=== PATIENT | female | born 1945 | race Caucasian/White ===

== ENCOUNTER 2018-05-28 18:51 | Emergency (ER) | payer MEDICARE, OTHER ==
--- NOTE | 2018-05-28 19:33 | XRAY Report ---
Reason: wrist inj Procedure Date: 05/28/2018 Accession Number: [id number] / [id number] Procedure: XR - Wrist 4 View RT CPT Code: FULL RESULT: EXAM: RIGHT WRIST RADIOGRAPHY EXAM DATE: 05/28/2018 07:28 PM. CLINICAL HISTORY: Wrist inj. COMPARISON: None available. TECHNIQUE: 4 views. FINDINGS: Osteopenia. There is an acute fracture of the distal right radial metaphysis, which is dorsally angulated by 22 degrees. The carpal bones are intact and normally aligned. Mild degenerative change of the first carpometacarpal joint. Soft tissue swelling about the wrist. IMPRESSION: Acute, dorsally angulated fracture of the distal right radial metaphysis. RADIA
[2018-05-28] MEDS ORDERED: BUPIVACAINE 0.5%-EPI 1:200000 PF 10 ML VIAL SUBQ STA (19:34)
[2018-05-28] MEDS ORDERED: HYDROcod/ACET 5/325 Prepack 4 PO STA (19:34)
--- NOTE | 2018-05-28 19:36 | ED Physician Documentation ---
PD HPI UPPER EXT INJURY - Stated complaint Stated Complaint: GLF WRIST INJURY - Chief complaint Chief Complaint: Ext Problem - History obtained from History obtained from: Patient - History of Present Illness Location: Right, Wrist Type of injury: Fall Timing - onset: Today (Tripped and fell, falling on outstretched right hand, isolated right wrist injury, no other inj) Review of Systems Constitutional: reports: Reviewed and negative Nose: reports: Reviewed and negative Throat: reports: Reviewed and negative PD PAST MEDICAL HISTORY - Present Medications Home Medications: Ambulatory Orders Medication Instructions Recorded Confirmed Hydrocodone/Acetaminophen 1 - 2 each PO Q6H PRN #14 tablet 05/28/18 [Hydrocodon-Acetaminophen 5-325] Levothyroxine Sodium [Synthroid] 0 mcg PO DAILY 05/28/18 05/28/18 - Allergies Allergies/Adverse Reactions: Allergies Allergy/AdvReac Type Severity Reaction Status Date / Time Penicillins Allergy Unknown Verified 05/28/18 18:59 PD ED PE NORMAL - Vitals Vital signs reviewed: Yes - General General: Alert and oriented X 3, No acute distress - Neck Neck: Supple, no meningeal sign, No bony TTP - Extremities Extremities: Other (Right wrist has a dorsal deformity consistent with Colles' fracture, normal neurovascular function in the hand.) - Neuro Neuro: Alert and oriented X 3, Normal speech - Psych Psych: Normal mood, Normal affect Results - Vitals Vitals: Vital Signs - 24 hr 05/28/18 18:56 Temperature 36.7 C Heart Rate 93 Respiratory 16 Rate Blood Pressure 168/84 H O2 Saturation 97 Oxygen O2 Source Room air - Rads (name of study) R wrist 4v Radiology: EMP read contemporaneously (Acute dorsally angulated fracture of the distal right radial metaphysis.) Procedures - Splint (location) R wrist Splint applied by: Physician Type of splint: Fiberglass, Long arm, Sugar tong Other: Patient tolerated well, No complications, Neurovascular intact, Sling provided - Reduction Body part reduced: Right, Wrist Fracture or dislocation: Fracture dislocation Anesthesia: Hematoma block (5ml 0.5ml marcaine with epi) Reduction aftercare: Alignment improved, Splint applied Departure - Departure Disposition: 01 Home, Self Care Clinical Impression: Colles' fracture Qualifiers: Encounter type: initial encounter Fracture type: closed Laterality: right Qualified Code(s): S52.531A - Colles' fracture of right radius, initial encounter for closed fracture Condition: Good Record reviewed to determine appropriate education?: Yes Instructions: ED Fx Forearm Radius Ulna Redu Requ Follow-Up: [facility] [Provider Group] Prescriptions: Hydrocodone/Acetaminophen [Hydrocodon-Acetaminophen 5-325] 1 - 2 each PO Q6H PRN #14 tablet PRN Reason: pain Comments: Keep the splint on and dry, do not remove it and do not get it wet. Follow-up with an orthopedic surgeon this coming week, call Wednesday for an appointment. Your blood pressure was elevated today on check into the emergency department. This does not mean that you have hypertension, it is a common phenomenon to come to the emergency department and have elevated blood pressure. I recommend that you see your primary care physician within the week to have it rechecked when you are feeling better. Do not drink or drive while taking narcotic pain medication. Note that many narcotic pain relievers also contain Tylenol/acetaminophen. Please ensure that your total dose of acetaminophen from all sources does not exceed 3 g (3000 mg) per day. You may get constipated while on this medication. Take a stool softener such as Colace twice a day while you are on it. Also add an glib-fmw-pnnugzu laxative such as senna or MiraLAX on any day that you do not have a bowel movement. If you received a narcotic pain medication or sedative while in the emergency department, do not drive for the next 24 hours.
[2018-05-28 20:32] VITALS: BP 132/72
== END 2018-05-28 20:33 | disposition home or self-care (01) ==
LOC: ED 18:51
DX: S52.531A Colles' fracture of right radius, initial encounter for closed fracture (principal); W01.0XXA Fall on same level from slipping, tripping and stumbling without subsequent striking against object, initial encounter; Y93.H2 Activity, gardening and landscaping; R03.0 Elevated blood-pressure reading, without diagnosis of hypertension
CPT/HCPCS: 25605; 99283

== ENCOUNTER 2018-06-01 09:38 | Day surgery (SDC) | payer MEDICARE, OTHER ==
--- NOTE | 2018-06-01 08:52 | ANESTHESIA ---
Pre-Anesthesia VS, & Labs - Diagnosis right wrist distal radius fracture - Procedure ORIF right distal radius Height 4 ft 10 in Body Mass Index 22.6 - NPO >8 hours (except meds with sip) - Is Patient ?: No Home Medications and Allergies Home Medications: Ambulatory Orders Alendronate [Fosamax] 70 mg PO ONCE 05/31/18 Levothyroxine Sodium [Synthroid] 0.05 mcg PO DAILY 05/28/18 Alendronate [Fosamax] 70 mg PO ONCE 05/31/18 Allergies/Adverse Reactions: Allergies Allergy/AdvReac Type Severity Reaction Status Date / Time Penicillins Allergy Unknown Verified 05/28/18 18:59 Anes History & Medical History - Anesthetic History Anesthesia Complications: reports: No previous complications - Medical History Cardiovascular: reports: None Pulmonary: reports: None Gastrointestinal: reports: None Urinary: reports: None Musculoskeletal: reports: Osteoporosis Endocrine/Autoimmune: reports: HyPOthyroidism Smoking Status: Never smoker - Surgical History Gynecologic: Tubal ligation Results - EKG Results EKG Comparison: Reviewed EKG (NSR) Exam General: Alert Dental: WNL, Partials Upper Mouth Openin Fingerbreadth Mallampati classification: II Respiratory: Lungs clear Cardiovascular: Regular rate, Normal S1, Normal S2 Mental/Cognitive Status: Alert/Oriented X3 Plan Anesthesia Type: General (GA backup), Supraclavicular Block Consent for Procedure(s) Verified and Reviewed: Yes Code Status: Attempt Resuscitation ASA classification: 2-Mild systemic disease Is this case an emergency?: No
[~2018-06-01 09:38] MED LIST: LACTATED RINGERS 1,000 ML IV ONE; ceFAZolin 2 GM/50 ML 2 GM/50 ML BAG IV ONE
[2018-06-01] MEDS ORDERED: BUPIVACAINE 0.25% PF 30 ML VIAL SUBQ ONE (09:39)
[2018-06-01] MEDS ORDERED: MIDAZOLAM 2 MG/2 ML VIAL ONE (10:19)
[2018-06-01] MEDS ORDERED: fentaNYL 100 MCG/2 ML VIAL ONE (10:19)
[2018-06-01] MEDS ORDERED: DEXAMETHASONE 4 MG/ML VIAL ONE (10:19)
[2018-06-01] MEDS ORDERED: ROPIVACAINE 0.5% PF 20 ML AMPULE ONE (10:19)
[2018-06-01 10:32] LABS: CALCIUM 8.5 mg/dL (8.5-10.3); CREATININE 0.7 mg/dL (0.4-1.0)
[2018-06-01] MEDS ORDERED: PROPOFOL 200 MG/20 ML VIAL IVP ONE (12:10)
[2018-06-01] MEDS ORDERED: LACTATED RINGERS 1,000 ML IV ONE (12:56)
[2018-06-01] MEDS ORDERED: oxyCODONE 5 MG TABLET PO PRN (14:33)
[2018-06-01] MEDS ORDERED: ONDANSETRON 4 MG/2 ML VIAL IVP PRN (14:33)
[2018-06-01 15:33] VITALS: BP 136/59
--- NOTE | 2018-06-02 16:01 | OPERATIVE REPORT ---
DATE OF SERVICE: 06/01/2018 Physician: Kodi Archuleta MD SURGEON: Kodi Archuleta MD. ANESTHESIOLOGIST: Jonatan Beard CRNA, as well as Yadira Jimenez CRNA PREOPERATIVE DIAGNOSIS: Right intraarticular distal radius fracture, displaced. POSTOPERATIVE DIAGNOSIS: Right intraarticular distal radius fracture, displaced. PROCEDURES: 1. Right distal radius open reduction and internal fixation. 2. Brachioradialis tenotomy. 3. Right wrist 4-view mini C-arm fluoroscopic interpretation. ANESTHESIA TYPE: Right shoulder supraclavicular regional anesthetic, as well as sedation. COMPRESSION DEVICE: Bilateral calf SCD boots. PREOPERATIVE ANTIBIOTICS: Weight-based IV Ancef. ESTIMATED BLOOD LOSS: Less than 10 mL. FLUIDS: 1300 mL of lactated Ringer's. TIN ASSORTER: None. ORTHOPEDIC IMPLANT: Biomet DVR narrow right small plate with associated locking and nonlocking screw s. HISTORY OF PRESENT ILLNESS: The patient is a 73-year-old female, who is quite active, found to have a right displaced intraarticular distal radius fracture. She was indicated for operative treatment. Please see preoperative clinic visit for further details on risks, benefits, alternatives discussion . This is again highlighted in the preoperative care unit with the patient and the patient's daughte r and . Her questions were answered. They verbalized a wish to proceed with operative treatm ent. Informed consent was given. PROCEDURE: On 06/01/2018, patient was identified in the preoperative care unit. She identifies her right wrist as the operative site; this is signed by the operating surgeon. Patient was brought to [facility] operating room, placed supine on the operating table. Head, neck, and extremities placed in anato mically comfortable and safe positions to avoid peripheral nerve stretch and compression. Of note, r egional anesthesia had been administered in the preoperative care unit. Patient is sedated. Patient 's right upper extremity has a well-padded tourniquet placed high on the right arm, taking care to av oid encumbrance of the axilla. Patient's right upper extremity is prescrubbed with chlorhexidine khadar ution and then prepped and draped in the usual sterile fashion. At this time, surgical pause identif ies right wrist as operative site. At this time, Esmarch bandage was used to exsanguinate the limb. Tourniquet is inflated, and then incision is made over the FCR and then angled towards the wrist cre ase, spreading dissection carried out to the FCR tendon sheath, which is incised gently and extended proximally and distally. FCR is brought aside, and the posterior sheath is incised and then spreadin g dissection carried down to the pronator quadratus. Medial and lateral retraction is used to protec t adjacent neurovascular structures. At this point, pronator quadratus is identified in its borders and then elevated in an L-shaped fashion for later repair. At this point, brachioradialis is identif ied. First dorsal extensor compartment is identified. Brachioradialis is elevated off the radial st yloid carefully. At this point, the fracture site is irrigated and hematoma is evacuated, as is natalee osteum. Reduction maneuver helps to maintain or restore length of the radius, as well as radial incl ination and closes down sagittal split, as well as provides appropriate volar inclination. At this p oint, a plate is selected and is ultimately used for additional reduction, such that the distal aspec t is fixed with multiple locking screws after confirmation of extraarticular trajectory using a K-wir e. Once the distal locking screws are placed, approximately 3 in number, then the oval hole is fille d in the shaft, thereby further reducing and optimizing the reduction. At this point, residual dista l and proximal holes are filled with locking screws. At this point, confirmation of appropriate frac ture reduction and extraarticular hardware is seen on fluoroscopic image. Hardware is also noted to be out of the DRUJ. At this point, the screws are noted to be appropriately tightened, and then the wound is copiously irrigated. Pronator quadratus is then closed over the plate, and then the skin is closed using 0 Vicryl, 2-0 Vicryl, and interrupted nylon suture. Skin is washed and dried. Xerofor m dressing is applied. Dry sterile dressing is applied. Soft roll and then a clamshell-type plaster splint is applied. Patient tolerated the procedure well. Instrument and sponge counts are correct. Patient is transfer red to recovery room in stable condition. Patient will follow standard postoperative right distal radius open reduction and internal fixation p rotocol. Patient will be nonweightbearing. She would stay in the splint. She would keep the splint clean, dry, and intact. She would be encouraged to move her digits. She would use a sling when up and about, otherwise elevate the hand and wrist. Patient will followup in 10-14 days or sooner, should problems, questions, or worsening condition tish se. Patient was placed on perioperative antibiotics, as well as analgesic medication. She denied any con traindication to the medication plan. Patient's family is contacted in the waiting room. Case is discussed. Fluoroscopic images are revie wed. Their questions are answered. They verbalize agreement and satisfaction of the above plan. ADDITIONAL PROCEDURE: Four-view right wrist mini C-arm fluoroscopic image interpretation. RADIOGRAPHIC INDICATIONS: Intraoperative evaluation of distal radius fracture reduction and hardware placement. Radiographic findings demonstrate near anatomic reduction of distal radius fracture with appropriate radial height, radial inclination, and volar inclination with metallic screw and plate f ixation, which appears to be extraarticular and appropriate length screws without overpenetration natalia romero. RADIOGRAPHIC IMPRESSION: Right wrist as above. TD: 06/02/2018 13:23
== END 2018-06-01 09:39 | disposition home or self-care (01) ==
LOC: SDS 09:38
PROVIDERS: ATTEND Orthopaedic Surgery Sports Medicine
PROC: 0PSH04Z Reposition Right Radius with Internal Fixation Device, Open Approach (ICD-10-PCS; principal; 2018-06-01 10:45)
DX: S52.571A Other intraarticular fracture of lower end of right radius, initial encounter for closed fracture (principal); M81.0 Age-related osteoporosis without current pathological fracture; E03.9 Hypothyroidism, unspecified
CPT/HCPCS: 25609; 80048; 93005; C1713; J0690; J7120